=== PATIENT | male | born 1995 | race Caucasian/White ===

== ENCOUNTER 2020-11-18 18:53 | Emergency (ER) | payer OTHER, SELFPAY | END 2020-11-18 19:28 | disposition left against medical advice (07) | PROVIDERS: Emergency Provider Emergency Medicine; PCP Family Medicine | DX: Z53.8 Procedure and treatment not carried out for other reasons (principal) | CPT/HCPCS: 99199 ==

== ENCOUNTER 2021-04-13 10:28 | Outpatient (CLI) | payer OTHER, SELFPAY ==
[2021-04-13 11:32] LABS: SARS-CoV-2 Ag Negative (Negative)
== END 2021-04-13 10:29 | disposition home or self-care (01) ==
PROVIDERS: PCP Nurse Practitioner Family; Visit Provider Nurse Practitioner Family
DX: Z20.822 Contact with and (suspected) exposure to COVID-19 (principal)
CPT/HCPCS: 87426; C9803